=== PATIENT | female | born 1970 | race Caucasian/White ===

== ENCOUNTER 2022-10-20 09:56 | Day surgery (SDC) | payer BC ==
[2022-09-29 10:48] VITALS: BMI 37.0
[2022-10-20 10:31] VITALS: RESP 18
[2022-10-20 12:58] VITALS: TEMP 97.1
[2022-10-20 13:11] VITALS: BP 104/57; PULSE 76
== END 2022-10-20 13:28 | disposition home or self-care (01) ==
LOC: FASU-ENDO 09:56
PROVIDERS: ATTEND Internal Medicine Gastroenterology
PROC: 0DJD8ZZ Inspection of Lower Intestinal Tract, Via Natural or Artificial Opening Endoscopic (ICD-10-PCS; principal; 2022-10-20 12:31)
DX: Z12.11 Encounter for screening for malignant neoplasm of colon (principal); K64.1 Second degree hemorrhoids
CPT/HCPCS: 81025